=== PATIENT | female | born 1985 | race Caucasian/White ===

== ENCOUNTER 2025-03-05 16:54 | Emergency (ER) | payer BC, SELFPAY ==
[2025-03-05 17:11] VITALS: BP 122/84
[2025-03-05 18:16] VITALS: BP 125/86
[2025-03-05] MEDS: TORADOL 15 MG IV (18:49)
[2025-03-05] MEDS: NSS 1000 IV (18:49)
[2025-03-05 19:00] VITALS: BP 133/76
--- NOTE | 2025-03-05 19:30 | ED.GENMED ---
History of Present Illness
General
Chief Complaint: Vaginal Bleeding
Source: patient
Exam Limitations: none
Time Seen by Provider: 03/05/25 18:21
Nursing documentation reviewed up to this point in time: agreed with
History of Present Illness
History of Present Illness:
Patient is a 39-year-old female with history hypertension, TIA who presents the emergency department with 9 days of vaginal bleeding. She states that she had a Mirena IUD placed at her [facility], on February 13. She started bleeding
on February 24 and it has persisted since. She describes lower abdominal/pelvic cramping as well as low back discomfort. She describes bright red blood with occasional clots. She switched from tampons to pads and currently states that she is
bleeding through 1 pad about every 5 hours. She reports significant fatigue over the past few days however denies any shortness of breath, dizziness, or syncopal events. She denies any fever, chills, vomiting, or urinary complaints.
She contacted her [facility] who recommended evaluation in the emergency department to ensure that IUD has not migrated.
Patient states she had to be taken off of her OCP as she has a history of TIA. She is not currently on any anticoagulation.
Past History
Past History
ED Past Medical History: HTN
ED Past Surgical History: Appendectomy and Gynecological
Review of Systems
Review of Systems
Allergies reviewed?: Yes
All Other Systems: ROS reviewed and negative except as documented in HPI and ROS
Phy Exam
Physical Exam
Physical Exam:
Vitals: Patient's vital signs are stable. Afebrile
General: Patient is well appearing, no acute distress. Nontoxic appearing
Skin: Warm and dry, no rashes or lesions
Head: Normocephalic, atraumatic
Eyes: Sclera nonicteric. EOMs intact. No nystagmus.
Throat: Protecting airway
Neck: Normal ROM, no cervical spine tenderness, no meningismus
Cardiac: Regular rate and rhythm, no murmurs.
Pulm: Normal respiratory effort, no wheezes, rales, rhonchi heard on exam
Abdomen: Abdomen soft. Mild tenderness in suprapubic region and low back. No rebound tenderness or guarding. No CVA tenderness.
Pelvic: External genitalia normal appearing without lesions, ulcerations, or adenopathy. Vaginal vault without lesions, ulcerations. Minimal dark brown bleeding in vaginal vault.
Extremities: No evidence of cyanosis or edema. 2+ palpable DP pulses bilaterally
Neuro: AAOx3. Grossly intact.
Psychiatric: Normal affect.
Course
Orders/Labs/Results
Orders:
Orders
03/05/25 18:45
0.9% Sodium Chloride 1000 ml [Nss] 1,000 ml IV BOLUS
Ketorolac [Toradol] 15 mg IV NOW STA
Test Result ONCE
Pelvis & Transvaginal US [US Pelvis W Transvag Combined] Urgent
Comment:
Reason For Exam: Vaginal bleeding s/p IUD placement
03/05/25 19:01
Complete Blood Count/With Diff Urgent
Comprehensive Metabolic Panel Urgent
HCG, Serum Qualitative Screen Urgent
Abnormal Lab Results
03/05/25
19:01
MCH 25.9 L pg
(27.0-31.0)
MCHC 31.6 L g/dL
(33.0-37.0)
MPV 10.5 H fL
(7.4-10.4)
Chloride 110 H mmol/L
(98-107)
03/05/25 19:01
03/05/25 19:01
Vital Signs
Initial and Last Documented VS:
Initial Vital Signs
Temp Pulse Resp BP Pulse Ox
98.3 F 86 18 122/84 98
03/05/25 17:11 03/05/25 17:11 03/05/25 17:11 03/05/25 17:11 03/05/25 17:11
Last Documented Vital Signs
Temp Pulse Resp BP Pulse Ox
98.3 F 57 18 104/68 100
03/05/25 17:11 03/05/25 20:30 03/05/25 20:30 03/05/25 20:31 03/05/25 20:00
MDM/Problems Addressed
Differential Diagnosis Includes:
Not limited to: Menstrual bleeding, IUD side effect, uterine fibroids, cervicitis, doubt malignancy
MDM/Problems Addressed:
39-year-old female presents with 10 days of vaginal bleeding associated with fatigue. She denies lightheadedness, syncope, shortness of breath, or other concerning symptoms. Notably, she had an IUD placed approximately two weeks prior to the onset
of bleeding.
She is hemodynamically stable throughout her ED stay. Pelvic exam reveals a small amount of brown blood in the vaginal vault, with no active bleeding, lacerations, or ulcerations noted. Abdominal exam is benign without tenderness.
ED workup, including CBC, chemistry panel, and pelvic ultrasound, is unremarkable. Hemoglobin is stable. Ultrasound confirms the IUD is appropriately positioned with no evidence of retained products, masses, or fluid collections.
There is no evidence of significant bleeding. Likely related to hormonal changes related to recent IUD placement. Given her stable clinical picture and reassuring evaluation, the patient is safe for discharge with close outpatient [facility] [employer] follow-up.
Return precautions reviewed in detail. Patient is comfortable with the plan.
Chronic conditions affecting care:
N/A
Acute Exacerbation and/or Progression of Chronic Illness:
N/A
*Radiology
Radiology exam reviewed: radiology read reviewed
*Pulse Oximetry
SaO2: 98
Oxygen Mode of Delivery: Room air
Patient hypoxic: no
*EKG
Interpreted by ED Provider?: NA
*Patent Paralegal Interpretation
Rate: Patent Paralegal- N/A
*Critical Care Note
Total Time (30-74mins, 75-104mins- exclusive of procedures): Not Applicable
ED Attending Note
-
Portions of this chart may have been created with voice recognition software.� Occasional wrong word or��sound alike� substitutions may have occurred due to the inherent limitations of voice recognition software.
Discharge Plan
Departure
Patient Disposition: Home (Routine Discharge)
Date of Disposition: 03/05/25
Time of Disposition: 20:29
Patient with high blood pressure during this ER visit?: No
Condition: Good
Discharge Problem:
Vaginal bleeding
Instructions: Heavy Periods (DC)
Prescriptions:
No Action
tramadol 50 MG tablet
50 mg PO Q6HPRN PRN (Reason: back pain) Qty: 10 0RF
metaxalone [Skelaxin] 800 MG tablet
800 mg PO TIDPRN PRN (Reason: back pain) Qty: 10 0RF
Referrals:
Shefali Ovalle CRNP [Family Provider, General]
Activity Restrictions/Additional Instructions:
RETURN TO THE EMERGENCY DEPARTMENT WITH ANY FEVERS, WORSENING ABDOMINAL PAIN/BACK PAIN, PERSISTENT HEAVY BLEEDING OR PASSING LARGE CLOTS, LIGHTHEADEDNESS OR SIGNIFICANT FATIGUE, OR ANY OTHER CONCERNS
- As discussed�your lab work and ultrasound showed no acute abnormalities today. Your IUD appears to be in place on imaging.
- It is important stay well-hydrated.
- Follow-up with [facility] for further evaluation/management to ensure that your symptoms are improving
Monitor your symptoms closely and return to the emergency department with any acute worsening/new symptoms or any other concerns
Interventions
Interventions:
*Risk Screen - Suicide Last Done: 03/05/25 19:02
*General Assessment Last Done: 03/05/25 19:02
*Neglect/Abuse Screening Last Done: 03/05/25 19:02
*ED- Fall Risk Assessment Last Done: 03/05/25 19:02
*ED COVID-19 Vaccine History Last Done: 03/05/25 19:02
*ED Influenza Vaccine History Last Done: 03/05/25 19:02
*Nursing Disposition Last Done: 03/05/25 21:02
ED-Female Genitourinary Assessment Last Done: 03/05/25 19:13
Discharge Date and Time
Discharge Date/Time: 03/05/25 21:03
Print Language: MONGOLIAN
[2025-03-05 19:38] LABS: Hematocrit 39.5 % (37.0-47.0); Hemoglobin 12.5 g/dL (12.0-16.0); Mean Corp Hgb Conc. 31.6 g/dL (33.0-37.0); Mean Corpuscular Volume 81.8 fL (81.0-99.0); Nucleated Red Blood Cells % 0 %; Platelet Count 262 10^3/uL (130-400); Red Cell Dist. Width 12.5 % (11.5-14.5)
[2025-03-05 19:55] LABS: HCG, Serum Qualitative Screen Negative
[2025-03-05 20:00] VITALS: BP 99/65
[2025-03-05 20:01] LABS: ALT (SGPT) 17 U/L (0-35); AST (SGOT) 15 U/L (14-36); Albumin 4.5 g/dl (3.5-5.0); Alkaline Phosphatase 44 U/L (38-126); Blood Urea Nitrogen 15 mg/dl (7-17); Calcium 9.0 mg/dl (8.4-10.2); Carbon Dioxide 23 mmol/L (22-30); Chloride 110 mmol/L (98-107); Glucose 93 mg/dl (70-99); Potassium 3.8 mmol/L (3.5-5.1); Sodium 140 mmol/L (135-145); Total Protein 7.2 g/dl (6.3-8.2); eGFR > 60.00
[2025-03-05 20:31] VITALS: BP 104/68
== END 2025-03-05 21:03 | disposition home or self-care (01) ==
LOC: EMR 16:54
PROVIDERS: Physician Assistant; EMERGENCY PHYSICIAN Emergency Medicine; FAMILY PHYSICIAN Nurse Practitioner
DX: N93.9 Abnormal uterine and vaginal bleeding, unspecified (principal); I10 Essential (primary) hypertension; Z86.73 Personal history of transient ischemic attack (TIA), and cerebral infarction without residual deficits; Z97.5 Presence of (intrauterine) contraceptive device
CPT/HCPCS: 99284; 96374; 96361; 76830; 76856; 80053; 84703; 85025